=== PATIENT | female | born 1985 | race Caucasian/White ===

== ENCOUNTER 2020-08-20 10:01 | Day surgery (SDC) | payer OTHER ==
[2020-08-18 11:52] VITALS: BMI 25.0
[2020-08-20] MEDS ORDERED: Gabapentin 300 MG CAP ONE (10:16)
[2020-08-20] MEDS ORDERED: CeleCOXIB 100 MG CAP ONE (10:16)
[2020-08-20] MEDS ORDERED: Famotidine/PF 20 mg/2ml Vial ONE ×2 (10:16→11:48)
[2020-08-20] MEDS ORDERED: Lidocaine 0.5%/Epinephrine 1:200,000 50 ml Vial ONE (11:14)
[2020-08-20] MEDS ORDERED: Bupivacaine PF 0.5% 30 ML VIAL ONE (11:14)
[2020-08-20] MEDS ORDERED: Meperidine HCl/PF 25 MG/ML VIAL ONE (11:48)
[2020-08-20] MEDS ORDERED: Fentanyl 100 MCG/2 ML VIAL ONE ×2 (11:48→13:33)
[2020-08-20] MEDS ORDERED: Midazolam HCl 2 mg/2 ml Vial ONE (11:48)
[2020-08-20] MEDS ORDERED: Ondansetron PF 4 MG/2 ML Vial ONE (12:54)
[2020-08-20] MEDS ORDERED: Glycopyrrolate 0.2 MG/ML 5 ML SYRINGE ONE (12:54)
[2020-08-20] MEDS ORDERED: Dexamethasone 20 MG/5 ML VIAL ONE (12:54)
[2020-08-20] MEDS ORDERED: PROPOFOL 200 MG/20 ML VIAL ONE (12:54)
[2020-08-20] MEDS ORDERED: PHENYLEPHRINE-NS 100 MCG/ML 10 ML SYRINGE ONE (12:54)
[2020-08-20] MEDS ORDERED: Lidocaine 1% PF 5 ML VIAL ONE (12:54)
[2020-08-20] MEDS ORDERED: Metoclopramide HCl 10 MG/2 ML VIAL ONE (12:54)
[2020-08-20] MEDS ORDERED: Rocuronium Bromide 10 MG/ML (10ML VIAL) ONE (12:54)
--- NOTE | 2020-08-20 13:46 | OP ---
DATE OF PROCEDURE: 08/20/2020 PREOPERATIVE DIAGNOSIS: Sterilization. POSTOPERATIVE DIAGNOSIS: Sterilization. PROCEDURE PERFORMED: Laparoscopic bilateral salpingectomy. ANESTHESIA: General endotracheal. 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 ESTIMATED BLOOD LOSS: 5 mL. IVF: 1 L of crystalloid. URINE OUTPUT: 300 mL of clear urine. COMPLICATIONS: None. DRAINS: None. PATHOLOGY: Bilateral fallopian tubes. FINDINGS: Normal cervix, bilateral fallopian tubes, ovaries, and normal uterus. The patient has a benign melanocytic nevus present on the perineal body that has been previously biopsied and confirmed benign. DESCRIPTION OF PROCEDURE: The patient was taken to the operating room, where general anesthesia was obtained without difficulty. The patient was prepped and draped in a sterile fashion in dorsal lithotomy position. A Villalpando catheter was placed in the bladder. Speculum was placed in the vagina. The single-tooth Hulka was placed into the cervix. The speculum was removed. Legs were placed in low lithotomy. Attention was turned to the abdomen. 0.5% lidocaine with epinephrine was infiltrated into the umbilicus and a 5 mm skin incision was made. The Veress needle was passed into the abdomen, noting an opening pressure of 7 mmHg. Pneumoperitoneum was obtained without difficulty. The Veress needle was removed, and a 5 mm trocar and camera were passed optically into the abdomen. Steep Trendelenburg was obtained. Right and left lower quadrant 5-mm ports were placed under direct visualization after infiltrating with the anesthetic and making skin incision. The blunt grasper was then used to grasp the right fallopian tube and an elevated blunt-tipped LigaSure was used to cauterize and incise the mesosalpinx just underneath the fallopian tube from lateral to medial. The medial portion of the fallopian tube was clamped across, cauterized, and then transected. Now, the fallopian tube was placed in the anterior cul-de-sac. The same procedure was carried out on the left side. The fallopian tubes were then grasped and removed, and the 5 mm trocars along with the trocars themselves. Pneumoperitoneum was released. Hemostasis was noted to be excellent on low pressure check. All instruments were removed out of the abdomen. The Hulka manipulator was removed out of the cervix. A ring forceps was used to clamp the area where the clamp went into the cervix for several minutes. This was then removed and the area was noted to be hemostatic. All instruments were removed out of the vagina. The patient tolerated the procedure well. Sponge, lap, and needle counts were correct x2. The patient was taken to recovery room in stable condition. The patient received Ancef 2 grams prior to the procedure. Job ID: [id number]
== END 2020-08-20 14:50 | disposition home or self-care (01) ==
LOC: SDC 10:01
PROVIDERS: ATTEND Student in an Organized Health Care Education/Training Program
PROC: 0UT74ZZ Resection of Bilateral Fallopian Tubes, Percutaneous Endoscopic Approach (ICD-10-PCS; principal; 2020-08-20)
DX: Z30.2 Encounter for sterilization (principal); D22.5 Melanocytic nevi of trunk; E55.9 Vitamin D deficiency, unspecified; Z87.891 Personal history of nicotine dependence; Z80.3 Family history of malignant neoplasm of breast; Z79.899 Other long term (current) drug therapy
CPT/HCPCS: 36415; 86850; 86900; 86901; 88302; 88305; J0690; J1100; J2001; J2175; J2250; J2405; J2704; J2765; J3010; S0020; S0028